=== PATIENT | female | born 1935 | race African-American/Black ===

== ENCOUNTER 2020-10-14 22:09 | Inpatient (IN) | payer MEDICARE, OTHER ==
[~2020-10-14] VITALS: Ht 162.6 cm; Wt 68.9 kg
--- NOTE | 2020-10-14 22:38 | NUR ---
Dr. Stephenson at bedside for MSE, also speaking with patient's sister/pcg.
[2020-10-14] MEDS ORDERED: IV NORMAL SALINE 500 ML BAG IV ONE (22:45)
--- NOTE | 2020-10-14 23:28 | NUR ---
Pt taken to CT
--- NOTE | 2020-10-14 23:30 | NUR ---
Pt bib [id number] from home for failure to thrive. Pts. family says they are overwhelmed with care, not able to care for pt anymore. Pts. family says pt. is not eating or drinking more than a few bites of food or sips of water daily. State she was hospitalized for chf in July and a pacemaker was placed. Pt has edema on bilat low ext. Pt. also made bizarre statements that "Books are in her Vagina". Pt is alert and oriented x 3. No signs of distress, vss.
[2020-10-14 23:35] LABS: HEMATOCRIT 45.9 % (31.2-41.9); MEAN CORPUSCULAR HEMOGLOBIN 30.4 uug (24.7-32.8); PLATELET COUNT (AUTO) 118 K/uL (179-408)
[2020-10-14 23:41] LABS: CARBON DIOXIDE 25 mmol/L (21-32); CHLORIDE 92 mmol/L (98-107); CREATININE 1.3 mg/dL (0.6-1.3); GLUCOSE 127 mg/dL (74-106); POTASSIUM 4.2 mmol/L (3.5-5.1); UREA NITROGEN, BLOOD 24 mg/dL (7-18)
[2020-10-14 23:42] LABS: ETHANOL < 3 MG/DL (0-0)
[2020-10-14 23:54] LABS: ALANINE AMINOTRANSFERASE 24 U/L (14-59); ALKALINE PHOSPHATASE 181 U/L (50-136); ASPARTATE AMINOTRANSFERASE 17 U/L (15-37); BILIRUBIN,TOTAL 2.2 mg/dL (0.2-1.0); TOTAL PROTEIN, SERUM 5.4 g/dL (6.4-8.2)
[2020-10-14 23:59] LABS: ACETAMINOPHEN < 2.0 ug/mL (10-30)
[2020-10-15 00:04] LABS: THYROID STIMULATING HORMONE 10.752 mIU/mL (0.358-3.740)
--- NOTE | 2020-10-15 01:15 | NUR ---
Magalis from PET team called, no answer. Left a message. Will continue to follow up.
--- NOTE | 2020-10-15 01:15 | NUR ---
Pts family requested pt. be transferred to [facility]. Called [facility] transfer center. They stated there are no beds available. Per Dr. Stephenson Pt. will be admitted here to tele for CHF and psychosis. Magalis from PET team called to determine if pt. needs to be put on a hold due to her bizarre statements, psychosis and desire to elope from hospital. [facility] called and Dr. Brush paged.
[2020-10-15 01:23] LABS: *BILIRUBIN,URIN NEGATIVE (NEGATIVE); *BLOOD, URINE 2+ (NEGATIVE); *COLOR,URINE YELLOW (YELLOW); *KETONES,URINE NEGATIVE (NEGATIVE); *UROBILINOGEN,URINE 0.2 E.U./dl (NORMAL); LEUKOCYTE ESTERASE ,URINE 1+ (NEGATIVE); NITRITE, URINE NEGATIVE (NEGATIVE); PH,URINE 5.5 (5.0-8.0); UGLUCOSE NEGATIVE (NEGATIVE)
[2020-10-15 01:26] LABS: *CLARITY,URINE HAZY (CLEAR)
[2020-10-15 01:31] LABS: BACTERIA,URINE NONE SEEN /HPF (NONE SEEN); SQUAMOUS EPITHELIAL CELL,UR FEW /HPF (NONE SEEN)
[2020-10-15 01:35] LABS: *AMPHETAMINE, URINE NEGATIVE (NEGATIVE); *CANNABINOID, URINE NEGATIVE (NEGATIVE); *COCCAINE, URINE NEGATIVE (NEGATIVE); *OPIATE, URINE NEGATIVE (NEGATIVE); *PHENCYCLIDINE SCREEN,URINE NEGATIVE (NEGATIVE)
[2020-10-15] MEDS ORDERED: Z GUARD REMEDY PASTE 57 GM TUBE TOP PRN (01:45)
[2020-10-15] MEDS ORDERED: MAGNESIUM HYDROXIDE 30 ML LIQUID UDC PO PRN (01:45)
--- NOTE | 2020-10-15 02:16 | NUR ---
Magalis called back, eta is 60 min.
--- NOTE | 2020-10-15 03:10 | NUR ---
Magalis at bedside for MSE.
[2020-10-15] MEDS ORDERED: MONT10TA33 PO (03:37)
[2020-10-15] MEDS ORDERED: ATOR20TA PO (03:37)
[2020-10-15] MEDS ORDERED: FLUT10.62 INH (03:37)
[2020-10-15] MEDS ORDERED: LANS30CA56 PO (03:37)
[2020-10-15] MEDS ORDERED: LISI2.5T2 PO (03:37)
[2020-10-15] MEDS ORDERED: LEVO100T10 PO (03:37)
[2020-10-15] MEDS ORDERED: METF-494 PO (03:37)
[2020-10-15] MEDS ORDERED: IPRA12.9 INH (03:37)
[2020-10-15] MEDS ORDERED: ASPI81TA31 PO (03:37)
[2020-10-15] MEDS ORDERED: ALPR1TAB7 PO (03:37)
[2020-10-15] MEDS ORDERED: TIOT18CA3 INH (03:37)
[2020-10-15] MEDS ORDERED: COLE3.75 PO (03:37)
[2020-10-15] MEDS ORDERED: CARV3.122 PO (03:37)
[2020-10-15] MEDS ORDERED: FURO40TA5 PO (03:37)
--- NOTE | 2020-10-15 03:44 | NUR ---
Pt. placed on 5150 hold by Magalis for gravely disabled.
--- NOTE | 2020-10-15 04:00 | NUR ---
Pt sleeping. Vss. No signs of distress. Will continue to monitor.
[2020-10-15] MEDS: ACETAMINOPHEN 325 MG TABLET PO PRN ×2 (04:59→17:46)
--- NOTE | 2020-10-15 05:00 | NUR ---
Pt. stated her tailbone was sore, repositioned her in bed. Offered her food but she declined. Will continue to monitor.
[2020-10-15] MEDS ORDERED: ACETAMINOPHEN 325 MG TABLET ONE (05:03)
[2020-10-15] MEDS: PANTOPRAZOLE SODIUM 40 MG TABLET.DR PO SCH (07:00)
--- NOTE | 2020-10-15 07:00 | NUR ---
Received report from police shift commander RN while she is giving protonix per IV.
--- NOTE | 2020-10-15 07:01 | NUR ---
Room is near nurses station. frequent visual checks done. pt is asleep RA NAD
--- NOTE | 2020-10-15 07:15 | NUR ---
documentation writer came in for morning rounds. Patient is in bed with intact LAC G20, RA, aox3 with episodes of confusion. currently denies si/hi, denies A/V hallucinations still on 5150H for GD (failure to thrive) OK to admit to tele dx CHF under Dr. Brush pending bed availability (waiting for flr sitter) will continue to monitor
[2020-10-15] MEDS ORDERED: PANTOPRAZOLE SODIUM 40 MG TABLET.DR PO ONE (07:18)
--- NOTE | 2020-10-15 08:00 | NUR ---
FATUMA Gonzalez came in as sitter. Pt is asleep. LEXI MOGRAN Tried to call for room and report. accounting reconciliation clerk states REceiving RN is Yara and still unavailable at this time. States she will call back
--- NOTE | 2020-10-15 09:10 | NUR ---
Yara RN still has not called back. Tried to call, and states that Yara is still at bedside. Left a message and staff states she will call back.
--- NOTE | 2020-10-15 09:28 | NUR ---
Report given to Yara TATE Pt ok to admit to Rm 301B Tele Rm under Dr. Castillo Transported via rney, with intact gomes cath at level 500mL with intact LAC G20 accompanied by sitter RA NAD
--- NOTE | 2020-10-15 09:30 | NUR ---
Patient pulled out her LAC IV thinking she was going home.dressed site. started new IV to RAC G20. intact with saline lock Transported to floor with monitor. accompanied by sitter. Patient was stating she wants to go home, reminded that she has a 5150H. Patient also stating she can get up and walk however, seemed very weak so we opted to transfer derrickrney to bed to ensure safety. cooperative and remained calm.
--- NOTE | 2020-10-15 10:30 | NUR ---
receive report on pt, pt transferred from ED. pt admitted for chf anf psychosis, pt had some hallucinations in ER, seen by psych team. pt is a/ox3, cooperative. pt has pedal edema 3+. on tele monitor, 2L O2 NC, no signs of distress, no reports of pain. family wants pt to stay at [facility] and NOT be transferred to [facility]. pt has iv on the left FA 20g saline lock, bed low and locked, call lgith within reach, will continue to monitor. 1:1 sitter at bedside.
[2020-10-15 12:00] VITALS: BP 93/54
[2020-10-15 16:00] VITALS: BP 104/58
[2020-10-15] MEDS: ONDANSETRON 4 MG/2 ML VIAL IV PRN (17:58)
[2020-10-15 20:00] VITALS: BP 108/63
--- NOTE | 2020-10-15 20:15 | NUR ---
RECEIVED PATIENT ASLEEP IN BED. SITTER AT BEDSIDE. NO RESP. DISTRESS NOTED. ON O2 2L NC SATING 100%. VS WNL. NO S/S OF ANY PAIN OR DISCOMFORT. H/L INTACT AND PATENT, NOTED TO LEFT AC #20 GAUGE. ON TELE V-PACING. F/C INTACT AND PATENT, DRAINING TO GRAVITY. BED ALARM ON. CALL LIGHT IN REACH. ALL NEEDS ATTENDED. WILL CONTINUE TO MONITOR AND ASSESS.
[2020-10-15] MEDS ORDERED: ALPRAZOLAM 0.5 MG TABLET PO PRN (21:45)
[2020-10-16] VITALS (14 sets, daily range): BP systolic 40–127; BP diastolic 21–88
[2020-10-16] MEDS: PANTOPRAZOLE SODIUM 40 MG TABLET.DR PO SCH (06:13)
[2020-10-16 06:30] LABS: HEMATOCRIT 41.4 % (31.2-41.9); MEAN CORPUSCULAR HEMOGLOBIN 30.5 uug (24.7-32.8); MEAN CORPUSCULAR VOLUME 91.8 fL (75.5-95.3); PLATELET COUNT (AUTO) 112 K/uL (179-408)
[2020-10-16 06:43] LABS: ALANINE AMINOTRANSFERASE 19 U/L (14-59); ALKALINE PHOSPHATASE 191 U/L (50-136); ASPARTATE AMINOTRANSFERASE 11 U/L (15-37); BILIRUBIN,TOTAL 1.7 mg/dL (0.2-1.0); CARBON DIOXIDE 27 mmol/L (21-32); CHLORIDE 96 mmol/L (98-107); CHOLESTEROL 86 mg/dL (<200); CREATININE 1.8 mg/dL (0.6-1.3); GLUCOSE 110 mg/dL (74-106); HDL CHOLESTEROL 67 mg/dL (40-60); MAGNESIUM 1.6 mg/dL (1.8-2.4); PHOSPHOROUS 3.3 mg/dL (2.5-4.9); POTASSIUM 4.1 mmol/L (3.5-5.1); TRIGLYCERIDES 69 MG/DL (30-150); UREA NITROGEN, BLOOD 28 mg/dL (7-18)
[2020-10-16] MEDS ORDERED: FUROSEMIDE 20 MG/2 ML VIAL IV SCH ×2 (09:15→10:30)
[2020-10-16] MEDS ORDERED: IPRATROPIUM BROMIDE 12.9 GM INHALER INH PRN (09:15)
[2020-10-16] MEDS ORDERED: ASPIRIN 81 MG TAB.CHEW PO SCH (09:15)
[2020-10-16] MEDS ORDERED: IPRATROPIUM BROMIDE 0.5 MG/2.5 ML NEBU NEB PRN (09:15)
[2020-10-16] MEDS: ACETAMINOPHEN 325 MG TABLET PO PRN (09:32)
--- NOTE | 2020-10-16 09:32 | NUR ---
PATIENT IN BED AWAKE ALERT STATED C/O PAIN MEDICATED WITH TYLENOL ORDERED BLOOD PRESSURE AT THIS TIME IS 92/56 HR 110 WAS LOW 89/55 PATIENT PLACED ON TRENDELENBERG POSITION THEN RECHECKED HAS A SITTER AT HER BEDSIDE NOTED THAT PATIENT PULLED OUT HER HEPLOCK WILL REINSERT BEFORE I COULD ADMINISTER HER IV ORDERS REMAIN ON O2 WITH NO SHORTNESS OF BREATH AT THIS TIME [facility] CATH REMAINS IN PLACE WITH TEA COLORED URINE ASSISTED WITH BREAKFAST APPETITE IS STILL POOR MADE COMFORTABLE WILL CONTINUE TO OBSERVE.
[2020-10-16] MEDS ORDERED: CEFTRIAXONE 1 G in IV DEXTROSE 5% 50 ML IV SCH (10:00)
[2020-10-16] MEDS ORDERED: FUROSEMIDE 40 MG/4 ML VIAL IVP SCH (10:27)
[2020-10-16] MEDS: ONDANSETRON 4 MG/2 ML VIAL IV PRN (10:47)
--- NOTE | 2020-10-16 11:45 | NUR ---
BLOOD PRESSURE IS 84/57 DR ALCALA NOTIFIED WITH NO NEW ORDERS PATIENT CONTINUES TO BE PLACED ON TRENDELENBERG POSITION.
[2020-10-16] MEDS ORDERED: MAGNESIUM SULFATE/D5W 100 ML IV SCH (12:00)
--- NOTE | 2020-10-16 12:00 | NUR ---
BLOOD PRESSURE AT THIS TIME IS 92/50
[2020-10-16] MEDS ORDERED: IV NS 1000 ML 1,000 ML IV PRN (14:15)
--- NOTE | 2020-10-16 14:15 | NUR ---
NEW ORDER NOTED FROM DR ALCALA TO START HS ORDERED PATIENT IS ALERT AND COOPERATIVE AWAKE AND VERBALLY RESPONSIVE AT THIS TIME.CALL WAS RECEIVED FROM PATIENTS SISTER DEONDRE QUIÑONEZ AND UPDATED HER ON PATIENTS CONDITION PATIENT ATE HER SOUP FOR LUNCH AND TOLERATED ABOUT 35 PERCENT OF HER BREAKFAST AND SHE STATED OKAY JUST WANTED TO MAKE SURE THAT PATIENT WAS STABLE BEFORE SHE IS RELEASED FROM [facility] REASSURED HER THAT PATIENT HAS TO BE MEDICALLY STABLE BEFORE SHE IS DISCHARGED AND SHE EXPRESSED UNDERSTANDING.
--- NOTE | 2020-10-16 14:23 | NUR ---
IVPB ATB INFUSED ORDERED WITH NO ADVERSE OR ALLERGIC REACTIONS AT THIS TIME MAG LEVEL IS 1.6 WITH MAG REPLACEMENTS ORDERED
--- NOTE | 2020-10-16 15:20 | NUR ---
PATIENT IN BED WITH HER SITTER AND NOTED THAT HER O2 SAT WAS LOW 70 PERCENT AND PATIENT IS LETHARGIC UNABLE TO VERBALLY RESPOND EYES CLOSED O2 TITRATED UP TO 4L/M BY NASAL CANULA O2 NOW IS NOW 85 RAPID RESPONSE CALLED BLOOD SUGAR CHECKED AND ITS 136.
--- NOTE | 2020-10-16 15:25 | NUR ---
CALLED AND NOTIFIED DR ALCALA RE RAPID RESPONSE WITH ORDERS FOR MANY STAT ORDERS SEE ORDER HISTORY.
--- NOTE | 2020-10-16 15:27 | NUR ---
UNABLE TO PALPATE PULSE CODE ELIUD INITIATED CPR STARTED AND ER DOCTOR HERE PATIENT INTUBATED DR ALCALA NOTIFIED.
--- NOTE | 2020-10-16 15:43 | NUR ---
PATIENT IS INTUBATED AND TRANSFERED TO ICU FOR CONTINUING CARE
--- NOTE | 2020-10-16 15:50 | NUR ---
Patient in from Medical surgical floor wheel down by nursing heating and blending supervisor and RT team. patient cyanotic, and agonal breathing noted pt. also using accessory muscles. on ventilator A/C 16, TV and FIO2 100% saturation of 98-100%. patient transfer situated in bed on On the monitor pt. on disorganized and unreadable rhythm and on crash-cart monitor pt. on sinus tachycardia in the 100- 140's. Soon after arrival pt. went asystole. Addendum: 10/16/20 at 2020 by JANICE BARILLAS RN Vent setting of A/C16, tv 475, fio2 1005 AND PEEP +5.
[2020-10-16] MEDS ORDERED: NOREPINEPHRINE BITARTRATE 32 MG in IV NORMAL SALINE 218 ML IV PRN (16:00)
[2020-10-16] MEDS ORDERED: PROPOFOL 100 ML IV PRN (16:00)
--- NOTE | 2020-10-16 16:03 | NUR ---
At this time a code blue called pt. went Asystole with no palpable pulses. Code run by E.R. Physician Janoo. Rosales During this code after receiving a total of 3 doses of epinephrine and cycles of CPR. pt. HONEYCUTT obtained code blue clear.
[2020-10-16] MEDS ORDERED: EPINEPHRINE 1:10,000 1 MG/10 ML DISP.SYRIN IV ONE ×7 (16:04→17:32)
[2020-10-16 16:07] LABS: CARBON DIOXIDE 15 mmol/L (21-32); CHLORIDE 96 mmol/L (98-107); CREATININE 2.1 mg/dL (0.6-1.3); GLUCOSE 121 mg/dL (74-106); POTASSIUM 4.9 mmol/L (3.5-5.1); UREA NITROGEN, BLOOD 29 mg/dL (7-18)
[2020-10-16 16:08] LABS: HEMATOCRIT 45.2 % (31.2-41.9); MEAN CORPUSCULAR HEMOGLOBIN 30.2 uug (24.7-32.8); MEAN CORPUSCULAR VOLUME 98.5 fL (75.5-95.3); PLATELET COUNT (AUTO) 89 K/uL (179-408)
[2020-10-16 16:13] LABS: ALANINE AMINOTRANSFERASE 24 U/L (14-59); ALKALINE PHOSPHATASE 182 U/L (50-136); ASPARTATE AMINOTRANSFERASE 27 U/L (15-37); BILIRUBIN,TOTAL 1.5 mg/dL (0.2-1.0); TOTAL PROTEIN, SERUM 4.8 g/dL (6.4-8.2)
--- NOTE | 2020-10-16 16:17 | NUR ---
FIRST CALLED PATIENTS DAUGHTER ALEK SOLARES [phone] UNABLE TO REACH HER BY PHONE SHE IS THE PERSON TO NOTIFY LEFT HER A VOICE MAIL
--- NOTE | 2020-10-16 16:18 | NUR ---
CALLED PATIENTS SISTER DEONDRE QUIÑONEZ SPOKE WITH HER AND NOTIFIED HER THAT PATIENT CONDITION IS POOR AND SHE HAS BEEN TRANSFERED TO INTENSIVE CARE UNIT NOTIFIED HER OF THE EVENTS WITH THE RAPID RESPONSE AND THE CODE BLUE PATIENT IS NOW IN ICU BED 5 AND SHE STATED WILL CALL AND NOTIFY ALEKVickie SOLARES PATIENTS DAUGHTER.
--- NOTE | 2020-10-16 16:29 | NUR ---
Called to be notified of pt's Lactic acid of 11.4
--- NOTE | 2020-10-16 16:40 | NUR ---
Code blue called pt. went asystole, code run by ER. physician Dr. Broderick. for details see code blue sheet. coded ended at 1647 with ROS no readable sbp at this time. Patient currently maxed out on levophed, neosynephrine, and vasopressin, and on bicarb drip.
--- NOTE | 2020-10-16 16:42 | NUR ---
BLOOD PRESSURE IS VERY HIGH AT 217/177 HR IS 72 AND 94 PERCENT INTUBATED.SHE IS OBTUNDED AND NOT RESPONDING TO PAIN OT TACTILE STIMULATION AT THIS TIME. Addendum: 10/16/20 at 1749 by PAPO SILVA RN TIME IS 1542
[2020-10-16] MEDS ORDERED: EPINEPHRINE 1:10,000 1 MG/10 ML DISP.SYRIN ONE (16:43)
[2020-10-16] MEDS ORDERED: EPINEPHRINE AMP 5 MG in IV NORMAL SALINE 245 ML IV PRN ×2 (16:45→17:15)
[2020-10-16] MEDS ORDERED: ATROPINE SULFATE 1 MG/10 ML DISP.SYRIN IV ONE (17:10)
[2020-10-16] MEDS ORDERED: PHENYLEPHRINE IV 100 MG in IV NORMAL SALINE 240 ML IV PRN (17:15)
[2020-10-16] MEDS ORDERED: SODIUM BICARBONATE 8.4% 50 MEQ/50 ML DISP.SYRIN IV ONE ×2 (17:25→17:32)
[2020-10-16] MEDS ORDERED: SODIUM BICARBONATE 8.4% 50 MEQ in IV D5/ 0.9% NACL 1,000 ML IV PRN (17:30)
--- NOTE | 2020-10-16 17:30 | NUR ---
Dr. Steven You present in the room and with medical staff running the 4th code blue on pt. and after Dr. Harris had spoke to family. Orders to stop and place pt. on comfort measures. At this time pt. maxed out on levophed, neosynephrine, vasopressin, and on running on bicarb drip. RT team at bed side and pt. terminally extubated as ordered. and drip turn off as ordered by Md present.
--- NOTE | 2020-10-16 17:33 | NUR ---
Patient Asystole at this time.
--- NOTE | 2020-10-16 17:33 | NUR ---
Patient apneic for 5 minutes. pupils fixed and dilated. No corneal reflexes. No audible heart tones. No breath sounds 1 minute. No palpable pulses for 1 minutes. Patient pronounced at 1733 by Mary Gallegos
--- NOTE | 2020-10-16 17:39 | NUR ---
Jose Miguel webb called pt. once more asystole, and pulseless. for details see code blue sheet. code stopped at 1755 with ROS and pulse present.
[2020-10-16] MEDS ORDERED: VASOPRESSIN 40 UNIT in IV NORMAL SALINE 40 ML IV PRN (17:45)
[2020-10-16] MEDS ORDERED: PRECEDEX 400 MCG/100 ML BOTTLE 100 ML IV PRN (17:45)
[2020-10-16] MEDS ORDERED: CARVEDILOL 3.125 MG TABLET PO SCH ×2 (18:00)
--- NOTE | 2020-10-16 18:14 | NUR ---
Patient Asystole, maxed out on multiple drips and currently on bicarb drip. at this time pt's daughter and sister had a meeting with attending Dr. Harris and at 1818 As per family request and Henri millard who is currently at bedside pt. terminally extubated, and placed on comfort measures.
--- NOTE | 2020-10-16 18:50 | NUR ---
Spoke with Selena from [facility] and reported pt's expiration time. As stated by Ms. Main statement of "[facility] will not pursued any organ donation and body parts due to age" C# [id number]
--- NOTE | 2020-10-16 19:57 | NUR ---
Post-mortem care rendered, and patient made presentable. Family wished to come and see her to say their final goodbye. Family took patient's personal belongings. After family left, remains of the patient secured in body bag, all tags filled out, verified with patient's armband, and affixed to proper locations. Call made to nursing security supervisor to have remains brought to the morgue. Family advised to arrange for a mortuary, examples of mortuaries provided so they can begin doing research into final arrangements. Business card provided to the family with number to the nursing security supervisor so they can call and inform us when arrangements have been made with a mortuary.
--- NOTE | 2020-10-16 20:21 | NUR ---
Report given to Lloyd Aguero who will continue with postmortem care. and finalization of documentation .
[2020-10-16] MEDS ORDERED: MONTELUKAST SODIUM 10 MG TABLET PO SCH (21:00)
[2020-10-16 22:41] LABS: BAND % (MANUAL) 13 % (0-10); LYMPHOCYTES % (MANUAL) 33 % (20-40); METAMYELOCYTES % 2 % (0-1); MONOCYTES % (MANUAL) 2 % (2-10); NEUTROPHILS % (MANUAL) 50 % (42-75)
[2020-10-17] MEDS ORDERED: LEVOTHYROXINE SODIUM 100 MCG TABLET PO SCH (07:00)
[2020-10-17] MEDS ORDERED: ASPIRIN 81 MG TAB.CHEW PO SCH (09:00)
== END 2020-10-16 17:33 | DRG 871 ==
LOC: ER 22:10 → TELE3 10-15 09:40 → CCU 10-16 16:09
PROVIDERS: ADMIT Internal Medicine; ATTEND Internal Medicine
PROC: 5A1945Z Respiratory Ventilation, 24-96 Consecutive Hours (ICD-10-PCS; principal; 2020-10-15)
PROC: 0BH17EZ Insertion of Endotracheal Airway into Trachea, Via Natural or Artificial Opening (ICD-10-PCS; 2020-10-15)
PROC: 5A12012 Performance of Cardiac Output, Single, Manual (ICD-10-PCS; 2020-10-16)
DX: A41.9 Sepsis, unspecified organism (principal); I50.23 Acute on chronic systolic (congestive) heart failure; E43 Unspecified severe protein-calorie malnutrition; G92 Toxic encephalopathy; I21.9 Acute myocardial infarction, unspecified; N17.0 Acute kidney failure with tubular necrosis; F23 Brief psychotic disorder; D68.59 Other primary thrombophilia; N39.0 Urinary tract infection, site not specified; I31.3 Pericardial effusion (noninflammatory); I11.0 Hypertensive heart disease with heart failure; Z66 Do not resuscitate; Z51.5 Encounter for palliative care; I25.5 Ischemic cardiomyopathy; J44.9 Chronic obstructive pulmonary disease, unspecified; Z79.51 Long term (current) use of inhaled steroids; Z79.82 Long term (current) use of aspirin; Z87.891 Personal history of nicotine dependence; Z79.84 Long term (current) use of oral hypoglycemic drugs; E03.9 Hypothyroidism, unspecified; E11.65 Type 2 diabetes mellitus with hyperglycemia; E78.5 Hyperlipidemia, unspecified; E66.9 Obesity, unspecified; E83.42 Hypomagnesemia; I08.3 Combined rheumatic disorders of mitral, aortic and tricuspid valves; I25.10 Atherosclerotic heart disease of native coronary artery without angina pectoris; Z20.822 Contact with and (suspected) exposure to COVID-19; Z95.810 Presence of automatic (implantable) cardiac defibrillator; I46.9 Cardiac arrest, cause unspecified; Z95.5 Presence of coronary angioplasty implant and graft
CPT/HCPCS: 36415; 51702; 70030-TC; 70450; 71045; 83605; 83735; 84100; 84443; 85025; 87086; 93005; 93307; 94002; 97161; A4663; G0378; G0480; J0171; J0461; J0696; J1940; J2370; J2405; J3475; J3490; J7030; J7042; J7050; J7060